=== PATIENT | female | born 1980 | race African-American/Black ===

== ENCOUNTER → 2016-10-12 | Outpatient (CLI) | payer MEDICAID ==
[2016-02-01 19:00] VITALS: BP 136/79
[~2016-10-12] MED LIST: CIPR500T94 PO; METR500T8 PO
--- NOTE | 2016-10-12 13:04 | RAD ---
Indication injury one year ago. Persistent pain. AP oblique and lateral views of the right knee were obtained. No bony abnormality is seen
== END | disposition home or self-care (01) ==
LOC: RAD 12:12
PROVIDERS: ATTEND Internal Medicine
DX: M25.561 Pain in right knee (principal); M25.461 Effusion, right knee
CPT/HCPCS: 73564

== ENCOUNTER 2017-04-26 13:58 | Emergency (ER) | payer MEDICAID ==
[~2017-04-26] VITALS: Ht 160 cm; Wt 47.6 kg
--- NOTE | 2017-04-26 15:03 | EKG ---
[facility] [address] [place] [address] Test Date: 2017-04-26 Test Time: 14:31:28 Pat Name: MYAH LEONG Department: Room: Gender: F [employer] Customer Service Clerk: : 1980 Requested By: YOON ROSAS Order Number: [id number] Reading MD: Measurements Intervals [place] Rate: 83 P: -2 CT: 162 QRS: 26 QRSD: 78 T: 60 QT: 362 QTc: 430 Interpretive Statements SINUS RHYTHM NON SPECIFIC ST-T ABNORMALITY (ELEVATION) OTHERWISE NORMAL ECG No previous ECG available for comparison
--- NOTE | 2017-04-26 15:41 | PHYS DOC ---
Past Medical History Past Medical History: No Pertinent History Past Surgical History: Other Additional Past Surgical Histo: growth removed from left ankle Alcohol Use: Occasionally Drug Use: None Adult General Chief Complaint Chief Complaint: CHEST WALL PAIN HPI HPI Patient is a 36 year old female who presents with complaint of left-sided chest pain. Patient states that she has been having pain with deep inspiration over the past few days. Patient started having productive cough starting 2 weeks ago and states that this has not improved. The patient rates her pain currently is 8 out of 10. Patient states that the pain is sharp. Patient states she has history of sickle cell trait but denies any other health problems. Patient denies any known sick contacts. Patient states she took ibuprofen yesterday which seemed to help with the pain, however came back this morning and patient has not taken any medications for her symptoms at this time. Review of Systems Review of Systems Constitutional: Denies fever or chills [] Eyes: Denies change in visual acuity, redness, or eye pain [] HENT: Denies nasal congestion or sore throat [] Respiratory: Productive cough[] Cardiovascular: Chest pain, denies edema[] GI: Denies abdominal pain, nausea, vomiting, bloody stools or diarrhea [] : Denies dysuria or hematuria [] Musculoskeletal: Denies back pain or joint pain [] Integument: Denies rash or skin lesions [] Neurologic: Denies headache, focal weakness or sensory changes [] All other systems were reviewed and found to be within normal limits, except as documented in this note. Allergies Allergies Allergies Coded Allergies Type Severity Reaction Last Updated Verified codeine Adverse Reaction Mild "upset stomach" 04/26/17 Yes tramadol Adverse Reaction Mild "upset stomach" 04/26/17 Yes Physical Exam Physical Exam Constitutional: Alert, afebrile, appears in mild discomfort. [] HENT: Normocephalic, atraumatic, bilateral external ears normal, oropharynx moist, no oral exudates, nose normal. [] Eyes: PERRLA, EOMI, conjunctiva normal, no discharge. [] Neck: Normal range of motion, no tenderness, supple, no stridor. [] Cardiovascular:Heart rate regular rhythm, no murmur [] Lungs & Thorax: Bilateral breath sounds clear to auscultation, left anterior chest wall tenderness causing reproducible pain[] Abdomen: Bowel sounds normal, soft, no tenderness, no masses, no pulsatile masses. [] Skin: Warm, dry, no erythema, no rash. [] Back: No tenderness, no CVA tenderness. [] Extremities: No tenderness, no cyanosis, no clubbing, ROM intact, no edema. [] Neurologic: Alert and oriented X 3, normal motor function, normal sensory function, no focal deficits noted. [] Current Patient Data Vital Signs Vital Signs Date Time Temp Pulse Resp B/P (MAP) Pulse Ox O2 Delivery O2 Flow Rate FiO2 04/26/17 14:20 98.0 96 16 108/68 (81) 98 Room Air 98.0 Lab Values Laboratory Tests Test 04/26/17 15:25 04/26/17 16:06 White Blood Count 11.9 x10^3/uL (4.0-11.0) H Red Blood Count 4.33 x10^6/uL (3.50-5.40) Hemoglobin 13.4 g/dL (12.0-15.5) Hematocrit 40.8 % (36.0-47.0) Mean Corpuscular Volume 94 fL (79-100) Mean Corpuscular Hemoglobin 31 pg (25-35) Mean Corpuscular Hemoglobin Concent 33 g/dL (31-37) Red Cell Distribution Width 13.6 % (11.5-14.5) Platelet Count 278 x10^3/uL (140-400) Neutrophils (%) (Auto) 83 % (31-73) H Lymphocytes (%) (Auto) 11 % (24-48) L Monocytes (%) (Auto) 6 % (0-9) Eosinophils (%) (Auto) 1 % (0-3) Basophils (%) (Auto) 0 % (0-3) Neutrophils # (Auto) 9.8 x10^3uL (1.8-7.7) H Lymphocytes # (Auto) 1.3 x10^3/uL (1.0-4.8) Monocytes # (Auto) 0.7 x10^3/uL (0.0-1.1) Eosinophils # (Auto) 0.1 x10^3/uL (0.0-0.7) Basophils # (Auto) 0.0 x10^3/uL (0.0-0.2) Sodium Level 140 mmol/L (136-145) Potassium Level 4.0 mmol/L (3.5-5.1) Chloride Level 105 mmol/L (98-107) Carbon Dioxide Level 29 mmol/L (21-32) Anion Gap 6 (6-14) Blood Urea Nitrogen 7 mg/dL (7-20) Creatinine 0.8 mg/dL (0.6-1.0) Estimated GFR (Cockcroft-Gault) 98.2 Glucose Level 74 mg/dL (70-99) Calcium Level 8.2 mg/dL (8.5-10.1) L Laboratory Tests 04/26/17 15:25 Laboratory Tests 04/26/17 16:06 EKG EKG Interpreted by me: Heart rate 84, sinus rhythm, normal intervals, normal axis, no acute ST/T-wave abnormalities present[] Radiology/Procedures Radiology/Procedures [facility] [address] [place] [address] IMAGING REPORT Signed PATIENT: MYAH LEONG ACCOUNT: [id number] : 1980 LOCATION: ER AGE: 36 SEX: F EXAM STATUS: REG ER ORD. PHYSICIAN: YOON ROSAS MD REASON: chest pain, cough PROCEDURE: CHEST PA & LATERAL Indication: Left-sided chest pain and cough. Time of exam 1523 hours. Correlation is made with prior study from 02/01/2016. FINDINGS: The heart size is normal. The lungs are clear. No pleural effusion or pneumothorax is identified. The pulmonary vascularity is normal. IMPRESSION: No acute abnormality detected. DICTATED and SIGNED BY: LINWOOD AJ MD DATE: 04/26/17 1539 CC: YOON ROSAS MD; NO PCP ~ [] Course & Med Decision Making Course & Med Decision Making Pertinent Labs and Imaging studies reviewed. (See chart for details) Patient's chest x-ray and blood work were unremarkable. Given the patient's length of symptoms, I will start patient on azithromycin for treatment of possible atypical pneumonia. We'll also continue patient on ibuprofen for treatment of acute chest wall pain likely due to persistent cough. Advise follow -up in 3-4 days a primary doctor for reevaluation and return emergency department for any worsening symptoms. Patient voiced understanding and in agreement with treatment plan. Dragon Disclaimer Dragon Disclaimer This electronic medical record was generated, in whole or in part, using a voice recognition dictation system. Departure Departure Impression: Primary Impression: Cough Additional Impression: Chest wall pain Disposition: HOME, SELF-CARE Condition: IMPROVED Referrals: NO PCP (PCP) Patient Instructions: Chest Wall Pain, Cough, Adult Additional Instructions: Follow-up with primary doctor in 3-4 days for reevaluation. Return to emergency department for any worsening symptoms. Scripts Azithromycin (ZITHROMAX) 250 Mg Tablet 1 PKG PO UD, #6 TAB Prov: YOON ROSAS MD 04/26/17 Ibuprofen (IBUPROFEN) 600 Mg Tablet 600 MG PO Q8HRS Y for INFLAMMATION, #30 TAB Prov: YOON ROSAS MD 04/26/17 Problem Qualifiers YOON ROSAS MD Apr 26, 2017 15:41
--- NOTE | 2017-04-26 15:44 | RAD ---
Indication: Left-sided chest pain and cough. Time of exam 1523 hours. Correlation is made with prior study from 02/01/2016. FINDINGS: The heart size is normal. The lungs are clear. No pleural effusion or pneumothorax is identified. The pulmonary vascularity is normal. IMPRESSION: No acute abnormality detected.
[2017-04-26 15:46] LABS: BASO % 0 % (0-3); EOS % 1 % (0-3); HEMATOCRIT 40.8 % (36.0-47.0); HEMOGLOBIN 13.4 g/dL (12.0-15.5); LYMPH # 1.3 x10^3/uL (1.0-4.8); LYMPH % 11 % (24-48); MEAN CORPUSCULAR HEMOGLOBIN 31 pg (25-35); MEAN CORPUSCULAR HGB CONC 33 g/dL (31-37); MEAN CORPUSCULAR VOLUME 94 fL (79-100); MONO % 6 % (0-9); NEUT % 83 % (31-73); PLATELET COUNT 278 x10^3/uL (140-400); RED BLOOD COUNT 4.33 x10^6/uL (3.50-5.40); RED CELL DISTRIBUTION WIDTH 13.6 % (11.5-14.5); WHITE BLOOD COUNT 11.9 x10^3/uL (4.0-11.0)
[2017-04-26 16:50] LABS: CALCIUM 8.2 mg/dL (8.5-10.1); CREATININE 0.8 mg/dL (0.6-1.0); GFR 98.2
[2017-04-26] MEDS ORDERED: IBUP-1007 PO (17:21)
[2017-04-26] MEDS ORDERED: AZIT250T PO (17:21)
[2017-04-26 17:33] VITALS: BP 103/64
== END 2017-04-26 17:35 | disposition home or self-care (01) ==
LOC: ER 13:58
DX: R07.89 Other chest pain (principal); R05 Cough; Z88.5 Allergy status to narcotic agent; Z88.6 Allergy status to analgesic agent
CPT/HCPCS: 36415; 71020; 80048; 85025; 93005; 99285-25

== ENCOUNTER 2018-03-06 14:12 | Emergency (ER) | payer SELFPAY ==
[~2018-03-06 14:12] MED LIST changes: +AZIT250T PO; +IBUP-1007 PO
== END 2018-03-06 14:35 | disposition left against medical advice (07) ==
LOC: ER 14:12
DX: R07.89 Other chest pain (principal); R06.02 Shortness of breath; Z53.21 Procedure and treatment not carried out due to patient leaving prior to being seen by health care provider